=== PATIENT | female | born 1960 | race Caucasian/White ===

== ENCOUNTER 2017-03-11 19:15 | Emergency (ER) | payer SELFPAY ==
[~2017-03-11] VITALS: Ht 160 cm; Wt 80.7 kg
[2017-03-11 19:15] VITALS: BP 169/87
--- NOTE | 2017-03-11 19:46 | PHYS DOC ---
General Chief Complaint: MULTIPLE COMPLAINTS Stated Complaint: BRONCHITIS X 7 DAYS Time Seen by MD: 19:41 Source: patient Problems: History of Present Illness Initial Comments Patient with multiple complaints, including headache, sore throat, dry nose, cough, shortness of breath, nausea, body aches, and fatigue. This all started last week. She's not yet seen a doctor for this. She is here now because she is not getting better. She's had no distinct fever chills at home, but does say that she has night sweats. She says she has no runny nose. Nose feels very dry. She does have some sore throat but no distinct problems swallowing or talking. She has had a cough productive of thick white mucus. There are some shortness of breath with this as well. She has no chest pain. There's some nausea but no vomiting. She is able to drink by mouth fluids without difficulty but really has no appetite for solids. Says she has some abdominal discomfort which she attributes to severe coughing. There is no change in bladder habits. She does have some diarrhea which she states eat solids over the last week. There is no blood or bilious control noted. There is no vaginal discharge or bleeding. She has diffuse body aches and feels generally weak, but denies any focal acute extremity or neurologic complaints. Patient has been exposed to other sick people at work. She's been using hot tea and hot showers for this home without help. Patient's past medical history is remarkable for high blood pressure. She smokes a pack of cigarettes daily, but has been cutting down. She is a nonuser of ethanol. Allergies: Coded Allergies: No Known Drug Allergies (Unverified , 03/11/17) Past Medical History Medical History: hypertension Social History Smoker: less than 1 pack/day Alcohol: none Review of Systems All Other Systems: Reviewed and Negative Physical Exam General Appearance: WD/WN, no apparent distress Ear, Nose, Throat: normal ENT inspection, normal pharynx Neck: full range of motion, supple, normal inspection Respiratory: lungs clear, normal breath sounds, no respiratory distress Cardiovascular: regular rate, rhythm, no edema Gastrointestinal: non tender, soft Back: no CVA tenderness, no vertebral tenderness Extremities: non-tender, normal inspection, no pedal edema Neurologic/Psychiatric: no motor/sensory deficits, alert, normal mood/affect, oriented x 3 Skin: normal color Lymphatic: no adenopathy Comments Generally this well-developed well-nourished white female in no acute distress. Vitals are as noted. Pertinent findings on physical exam shows pupils are equal reactive. Extraocular movements are intact. Ears and throat are clear. There is no dysphagia, dysphonia, or problems with secretions noted. Neck is supple without adenopathy or JVD. There's no meningeal signs. Chest is clear. There is no signs of respiratory distress. There is no tachypnea and retractions and she verbalizes without difficulty. Cardiac vascular exam is unremarkable. Abdomen soft and nontender. Back is without CVA tenderness. Extremities show no rashes cyanosis or edema. Neurologic exam shows her to be awake alert oriented and cooperative with exam. There are no gross motor sensory deficits patient. Remainder of physical exam is clinically unremarkable. Orders, Labs, Meds Old charts note no prior ER visits within the current system. I discussed the patient most likely diagnosis of viral illness with bronchitis. She's not coughing up any purulent sputum and I don't think antibiotics are indicated at this time. Exam is nonfocal, and I discussed with don't think labs or x-rays be particularly useful and she is agreeable to defer. We will go ahead and prescribe some Tussionex for her cough and nasal congestion, as well as an albuterol inhaler for any shortness of breath she might have. She may have some concomitant bronchospasm. As we talk, her big concern is that she get a work excuse to excuse her from work through Thursday through of this week. I explained that I really can't write a work excuse for days past, but I can write an excuse for today when she is in the ER and for tomorrow. She is accepting of the same. We discussed further home care including rest, increasing fluids, Advil or Tylenol as needed for fever or pain, and the need to find a new primary care physician as she is new to the area. She also voices understanding the need to return the ER sooner as needed if worsen anyway. She looks well, no acute discomfort distress, okay for discharge home at this time YUNIER MUÑOZ MD Mar 11, 2017 19:46
== END 2017-03-11 19:53 | disposition home or self-care (01) ==
LOC: ER 19:15
DX: J02.9 Acute pharyngitis, unspecified (principal); R05 Cough; R51 Headache; R06.02 Shortness of breath; M79.1 Myalgia; I10 Essential (primary) hypertension; F17.210 Nicotine dependence, cigarettes, uncomplicated
CPT/HCPCS: 99283